=== PATIENT | female | born 1970 | race American Indian/Alaskan Native ===

== ENCOUNTER 2017-05-27 06:05 | Inpatient (IN) ==
[2017-05-22 16:43] LABS: Appearance,Urine CLEAR; Bacteria,Urine 0 /hpf (0); Bilirubin,Urine NEG (NEG); Color,Urine STRAW; Glucose,Urine (UA) NEGATIVE (NEG); Leukocyte Esterase,Urine NEG /uL (NEG); Mucus,Urine FEW /hpf (0); Nitrate,Urine NEG (NEG); Protein,Urine NEG (NEG); Specific Gravity,Urine 1.012 (1.000-1.035); Urine Blood 0.03 mg/dL (<0.03); Urine RBC 2 /hpf (0-1); Urine Squamous Epithelial Cell < 1 /hpf (0-4); Urine WBC 1 /hpf (0-4); Urobilinogen,Urine NEG (NEG)
[2017-05-22 16:50] LABS: Basophils # (Auto) 0 K/mcL (0.0-0.3); Basophils % (Auto) 0.2 % (0.0-2.0); Eosinophils # (Auto) 0.1 K/mcL (0.0-0.7); Eosinophils % (Auto) 1.1 % (0.0-7.0); Granulocytes % (Auto) 90.9 % (38.0-78.0); Lymphocytes # (Auto) 0.6 K/mcL (1.5-4.8); Lymphocytes % (Auto) 7.2 % (15.5-49.0); Mean Cell Volume 86.3 fL (80.0-100.0); Mean Corpuscular HGB Conc 33.1 g/dL (31.0-36.0); Mean Corpuscular Hemoglobin 28.6 pg (26.0-34.0); Monocytes # (Auto) 0.1 K/mcL (0.1-0.9); Monocytes % (Auto) 0.6 % (1.0-12.0); Platelet Count 395 K/mcL (140-440); Red Cell Distribution Width 13.8 % (11.5-14.5)
[2017-05-22 17:01] LABS: Blood Urea Nitrogen 10 mg/dl (6-20)
[~2017-05-27 06:05] MED LIST: ACETAMINOPHEN 500 MG TABLET PO SCH; CELECOXIB 200 MG CAPSULE PO SCH; PREGABALIN 75 MG CAPSULE PO SCH; ceFAZolin 1 GM VIAL IV SCH
[2017-05-27] MEDS ORDERED: KETOROLAC 30 MG, ROPIVACAINE HCL/PF 49.5 ML, EPINEPHrine 0.5 MG, 0.9 % SODIUM CHLORIDE ... IJ ONE (08:00)
[2017-05-27] MEDS ORDERED: oxyCODONE 10 MG TAB.ER.12H PO SCH (08:45)
[2017-05-27] MEDS ORDERED: ROPIVACAINE HCL/PF 30 ML VIAL IJ ONE (09:00)
[2017-05-27] MEDS ORDERED: MIDAZOLAM 5 MG/5 ML VIAL IV ONE (09:00)
[2017-05-27] MEDS ORDERED: LIDOCAINE HCL/PF 100 MG/5 ML SYRINGE IV ONE (09:00)
[2017-05-27] MEDS ORDERED: GLYCOPYRROLATE 0.2 MG/ML VIAL IV ONE (09:00)
[2017-05-27] MEDS ORDERED: PROPOFOL 200 MG/20 ML VIAL IV ONE (09:00)
[2017-05-27] MEDS ORDERED: KETAMINE 100 MG/ML ML IV ONE (09:00)
[2017-05-27] MEDS ORDERED: ONDANSETRON 4 MG/2 ML VIAL IV ONE (09:00)
[2017-05-27] MEDS ORDERED: TRANEXAMIC ACID 1,000 MG/10 ML VIAL IV ONE (09:00)
[2017-05-27] MEDS ORDERED: GENTAMICIN SULFATE 800 MG/20 ML VIAL IR ONE (09:53)
[2017-05-27] MEDS ORDERED: MEPERIDINE 25 MG/ML SYRINGE IV PRN (10:19)
[2017-05-27] MEDS ORDERED: diphenhydrAMINE 50 MG/ML VIAL IV PRN (10:19)
[2017-05-27] MEDS ORDERED: ONDANSETRON 4 MG/2 ML VIAL IV PRN (10:19)
[2017-05-27] MEDS ORDERED: METHOCARBAMOL 1,000 MG/10 ML VIAL IV PRN (10:19)
[2017-05-27] MEDS ORDERED: IPRATROPIUM/ALBUTEROL 3 ML AMPUL.NEB NEB PRN (10:19)
[2017-05-27] MEDS ORDERED: BENZOCAINE/MENTHOL 1 LOZENGE PO PRN ×2 (10:19→10:36)
[2017-05-27] MEDS ORDERED: LACTATED RINGERS 1,000 ML IV SCH (10:30)
[2017-05-27] MEDS ORDERED: BISACODYL 10 MG SUPP.RECT PR PRN (10:36)
[2017-05-27] MEDS ORDERED: TRANEXAMIC ACID 1,000 MG/10 ML VIAL IV SCH (10:36)
[2017-05-27] MEDS ORDERED: FLEETS ADULT ENEMA PR PRN (10:36)
[2017-05-27] MEDS ORDERED: MAGNESIUM HYDROXIDE 30 ML ORAL.SUSP PO PRN (10:36)
[2017-05-27] MEDS ORDERED: POLYETHYLENE GLYCOL 3350 17 GM PACKET PO PRN (10:36)
[2017-05-27] MEDS ORDERED: ACETAMINOPHEN 325 MG TABLET PO PRN (10:36)
--- NOTE | 2017-05-27 10:36 | Brief Operative Note ---
Date of procedure: 05/27/17 Pre-op diagnosis: left knee djd severe Post-op diagnosis: same Procedure: Left TKA with fanny robot Grafts/Implants: Yes Anesthesia: GETA Findings: djd patellar femoral Complications: none Surgeon: Adiel Bunch Inspector Purchased Parts: Simone Garcia Estimated blood loss (cc): 21 Tourniquet Time (Minutes): 50 Specimens Removed/Pathology: none sent Condition: stable Disposition: PACU
[2017-05-27] MEDS ORDERED: ZOLPIDEM 5 MG TABLET PO PRN (10:41)
[2017-05-27] MEDS ORDERED: KETOTIFEN FUMARATE OU PRN (11:00)
--- NOTE | 2017-05-27 11:03 | Operative Note ---
DATE OF OPERATION: 05/27/2017 PREOPERATIVE DIAGNOSIS: Left knee degenerative arthritis, mostly patellofemoral. POSTOPERATIVE DIAGNOSIS: Left knee degenerative arthritis, mostly patellofemoral. PROCEDURE: Left total knee arthroplasty using the JAYNE robot. SURGEON: Adiel Bunch MD DIRECTOR FUNDRAISING: Simone Garcia PA-C ANESTHESIA: General LMA anesthesia. COMPLICATIONS: None. TOTAL TOURNIQUET TIME: 50 minutes. IMPLANTS PLACED: A size 3 tibia, size 3 femur with a 9 mm poly insert, a 36 mm patellar button, cemented components. DESCRIPTION OF PROCEDURE: The patient was brought to the operating room and put to sleep with general LMA anesthesia. Once asleep, the patient had the left leg sterilely prepped and draped in the usual sterile fashion. The leg was exsanguinated and tourniquet inflated to 250 pounds of pressure. Once this was done, we confirmed the operative site, Ioban over the skin and then made a midline incision, a mid vastus approach performed. We exposed the joint showing severe arthritis of the patellofemoral joint and to a lesser extent grade III and IV findings in both medial and lateral compartments. Once this was done, we proceeded with the JAYNE robot total knee, two pins above and below the knee were placed, and the arrays were attached. We registered the hip center of rotation and the medial and lateral malleoli. Once this was done, we then registered 30 points intra-articular on the femur and the tibia and the intra-articular pins on the femur and the tibia. Once all registered, we then balanced the knee at 15 and 90 degrees in both varus and valgus and then adjusted the implant to balance this knee. The patient was in about 90 degrees of hyperextension. At this point, we tightened the patient slightly in extension. Once positioned implants appropriately we brought the robot in. It was registered as well as intra-articular pin and we then made our distal femoral cut. Once this was done, we then made our posterior chamfer cut and then our anterior and posterior chamfer cuts after changing the blade. We irrigated thoroughly. We then made our tibial cut and preserved the posterior cruciate ligament, removed the remnants of the meniscus and removed spurs posteriorly. There was no complication. With this, we then placed the components and set rotation using the robot and the implant was placed. We irrigated thoroughly and then placed the femur. Once this was all done, we trialed a size 9 component, which brought the patient to 1 degree hyperextension. Varus valgus stability was perfect both in flexion and extension and mid flexion. We prepared the patella, total thickness was 22 mm. This was cut to 13 mm and we placed a 36 mm patellar button. The patient tolerated this well. There was no complication. We irrigated and cemented into place the above-mentioned sizes, excess cement being removed. We kept the knee at 45 degrees until all cement was dry. We irrigated the wound once more and injected the capsule around the joint with the post-injection formula. There was no complication and we closed the skin with #1 self-locking stitch. Once this was done, we then closed the skin with 2-0 Vicryl and adhesive closure. The patient tolerated this well. There was no complication. Sterile bandage applied. Tourniquet deflated at 50 minutes. RBH:edward Job ID: [id number] Doc ID: [id number] Adiel Bunch MD
[2017-05-27] MEDS: fentaNYL 100 MCG/2 ML VIAL IV PRN ×2 (11:14→11:29)
--- NOTE | 2017-05-27 11:23 | XRay Report ---
CLINICAL INFORMATION: Postsurgical follow-up TECHNIQUE: AP and crosstable lateral portable left knee COMPARISON: Previous examination dated 02/06/2016 FINDINGS: Status post left total knee arthroplasty. Femoral and tibial complements are in anatomic positions. As mild postsurgical soft tissue and intra-articular gas. There are skin pretty anteriorly IMPRESSION: Status post left total knee arthroplasty Interpreted and Authenticated by: Devin Sr 05/27/17
[2017-05-27] MEDS ORDERED: ACETAMINOPHEN 1,000 MG/100 ML BOTTLE IV ONE (11:44)
[2017-05-27] MEDS: 0.45 % SODIUM CHLORIDE 1,000 ML IV SCH ×2 (12:40→23:17)
[2017-05-27] MEDS: KETOROLAC 15 MG/ML VIAL IV SCH ×2 (12:40→19:20)
[2017-05-27] MEDS: HYDROmorphone 2 MG/ML SYRINGE IV PRN ×3 (13:20→21:07)
[2017-05-27] MEDS: 0.9 % SODIUM CHLORIDE 10 ML SYRINGE IV SCH ×2 (14:50→22:00)
[2017-05-27] MEDS: HYDROcodone/APAP 10/325MG TABLET PO PRN (16:48)
[2017-05-27] MEDS: WARFARIN 5 MG TABLET PO SCH (16:58)
[2017-05-27] MEDS: ONDANSETRON 4 MG/2 ML VIAL IV PRN (16:58)
[2017-05-27] MEDS: ceFAZolin 1 GM VIAL IV SCH (16:58)
--- NOTE | 2017-05-27 18:51 | General Surgery Progress Note ---
Subjective Patient reports: still having pain Narrative: Note initiated : 05/27/17 at 6:49 pm Service Date, if different from initiated Date: [] Patient: Tamara Sood 46 y/o F admitted on 05/27/17 for Left Total Knee Arthroplasty with Celestino Robot. Chief Complaint: [increased pain following L CELESTINO TKA today. Spinal and adductor canal block wearing off, pain 9/10 per pt now.] Objective Temp Pulse Resp BP Pulse Ox 98.7 F 75 21 135/72 94 05/27/17 15:15 05/27/17 17:09 05/27/17 11:30 05/27/17 17:09 05/27/17 17:09 - Additional Data Intake & Output - Last 24 hours: Intake & Output 05/25/17 05/26/17 05/27/17 05/28/17 05:59 05:59 05:59 05:59 Intake Total 1700 / 1700 Output Total 1755 / 1755 Balance -55 / -55 Weight 146 lb - General physical appearance moderate pain - Eyes PERRL - Respiratory normal expansion, normal respiratory effort - Neurologic other (lifts leg and moves ankle wo difficulty) - Psychiatric other (tearful and verbose regarding extent of pain) - Labs 05/22/17 14:40 05/22/17 14:39 Assessment and Plan (1) Postoperative pain of left knee Problem details: POD #0. Pt is chronically ill and has chronic pain with developed intolerance of pain. Now intolerant of post surgical pain. Status: Acute Assessment and plan: Pt received an adductor canal catheter in anticipation of poor tolerance of post operative pain. This is redosed this evening with 20 ml of marcaine 0.5% MPF. pt josiah well and is experiencing relief. plan for med/surgical coordinatorstaff weapons officer overnight to redose q 4 hours prn, may dose after midnight tonight to avoid toxicity. Current Visit: Yes - Narrative A/P Narrative: pt understands and agrees with plan and is appreciative of intervention. jonna detailed discussion with pt regarding chronic illness and pain and its effects on the HIGH LEAD YARDER/PNS making it increasingly difficult to control acute and chronic pain in these individuals. Pt expresses understanding and resolve to deal with the pain as best she can. Will plan to see and follow her tomorrow. Catheter will need to be d/c'd 05/28 due to concerns regarding infection risk and anticoagulation. - Time Spent With Patient Total time spent is greater than 50% in coordination of care (as documented) at patient's floor/unit and/or counseling patient: 15 - 24 minutes
[2017-05-27] MEDS ORDERED: ASPIRIN 325 MG ENTERIC COATED TABLET PO SCH (21:00)
[2017-05-27] MEDS ORDERED: TEMAZEPAM 15 MG CAPSULE PO PRN (21:00)
[2017-05-27] MEDS ORDERED: ENOXAPARIN 80 MG/0.8 ML SYRINGE SQ SCH (21:00)
[2017-05-27] MEDS: SENNOSIDES 1 TABLET PO SCH (21:01)
[2017-05-27] MEDS: CETIRIZINE 10 MG TABLET PO SCH (21:02)
[2017-05-27] MEDS: oxyCODONE 10 MG TAB.ER.12H PO SCH (21:02)
[2017-05-27] MEDS: NITROFURANTOIN SR 100 MG CAPSULE PO SCH (21:02)
[2017-05-27] MEDS: DOCUSATE SODIUM 100 MG CAPSULE PO SCH (21:03)
[2017-05-28] MEDS: KETOROLAC 15 MG/ML VIAL IV SCH ×5 (00:33→23:07)
[2017-05-28] MEDS: HYDROcodone/APAP 10/325MG TABLET PO PRN ×5 (00:34→20:44)
[2017-05-28] MEDS: ceFAZolin 1 GM VIAL IV SCH (00:35)
[2017-05-28] MEDS: HYDROmorphone 2 MG/ML SYRINGE IV PRN ×7 (00:51→15:37)
[2017-05-28] MEDS: BUPIVACAINE 0.5% 50 ML VIAL IJ PRN ×2 (01:09→07:00)
[2017-05-28] MEDS ORDERED: BUPIVACAINE 0.5% 50 ML VIAL IJ PRN (07:00)
[2017-05-28] MEDS: ONDANSETRON 4 MG/2 ML VIAL IV PRN (07:00)
--- NOTE | 2017-05-28 07:31 | Orthopedic Progress Note ---
Subjective Patient information: Note initiated : 05/28/17 at 7:30 am Service Date, if different from initiated Date: [] Patient: Tamara Sood 46 y/o F admitted on 05/27/17 for Left Total Knee Arthroplasty with Celestino Robot. Chief Complaint: [Pt is stable this morning on post operative day 1 without any significant concerns or complaints. Patients vital signs have remained stable. Patients dressing is dry and exhibits a grossly intact neurovascular and neuromotor exam. Patients 10 point ROS is otherwise negative. Pain is the primary chief complaint despite still having adductor canal block still intact. We are maxing out orals and injectables. ] Objective Vital signs: Vital Signs Temp Pulse Pulse Resp BP BP Pulse Ox 05/28/17 07:12 98.3 F 20 114/67 97 05/28/17 04:00 98.4 F 74 14 113/75 100 05/27/17 23:22 98.1 F 67 12 110/70 100 05/27/17 20:00 98.0 F 55 L 12 122/49 99 05/27/17 18:00 96 05/27/17 17:09 75 135/72 94 05/27/17 17:00 51 L 120/70 92 05/27/17 16:00 71 133/70 93 05/27/17 15:15 98.7 F 88 130/66 97 05/27/17 14:37 98 05/27/17 11:30 98.2 F 59 L 21 132/75 100 05/27/17 11:21 51 L 14 126/73 99 05/27/17 11:16 54 L 14 116/59 99 05/27/17 11:11 66 14 113/59 99 05/27/17 11:06 53 L 11 L 111/57 99 05/27/17 10:56 60 16 106/61 99 05/27/17 10:51 98.1 F 61 16 105/49 99 Intake and Output 05/27/17 05/28/17 05/28/17 21:59 05:59 13:59 Intake Total 240 / 240 1500 / 1500 Output Total 1450 / 1450 300 / 300 Balance -1210 / -1210 1200 / 1200 Intake: IV 1000 / 1000 Sodium Chloride 0.45% 1, 1000 / 1000 000 ml @ 100 mls/hr IV . Q10H [facility] Rx#:[id number] Oral 240 / 240 500 / 500 Output: Void Amount 1450 / 1450 300 / 300 Straight 1050 / 1050 Other: Meal Dinner Percent of Meal Consumed 100% Feeding Ability Independent Weight 150 lb Intake & Output: Intake & Output 05/27/17 05/28/17 05/28/17 21:59 05:59 13:59 Intake Total 240 / 240 1500 / 1500 Output Total 1450 / 1450 300 / 300 Balance -1210 / -1210 1200 / 1200 Weight 150 lb Intake: IV 1000 / 1000 Sodium Chloride 0.45% 1, 1000 / 1000 000 ml @ 100 mls/hr IV . Q10H [facility] Rx#:[id number] Oral 240 / 240 500 / 500 Output: Void Amount 1450 / 1450 300 / 300 Straight 1050 / 1050 Other: Meal Dinner Percent of Meal Consumed 100% Feeding Ability Independent Incision: Yes healing Incision clean and dry: Yes Dressing: Yes clean, Yes dry Weight bearing status: full Neurological exam IM: Yes motor sensory intact, Yes neurovascular intact Extremities exam IM: Yes Foot pink and warm, Yes neurovascular intact - Labs CBC & BMP: 05/28/17 05:20 05/22/17 14:39 Labs: Orthopedic Labs 05/28/17 05/27/17 05/22/17 05:20 06:15 14:39 PT 13.4 12.3 26.8 H INR 1.0 0.9 2.4 H APTT 43 H 05/28/17 05/22/17 05:20 14:40 Hgb 14.3 Hct 32.7 L 43.1 Assessment and Plan (1) Hx of total knee arthroplasty Patient has been educated regarding wound care and dressings, follow up recommendations, and medication use. We will f/u with the patient within 2-3 weeks for wound check. Status: Acute
--- NOTE | 2017-05-28 07:35 | Discharge Summary ---
Ortho Discharge - TKA - Patient Instructions Diet: Regular Diet Activity: activity as tolerated, weight bearing as tolerated Total Knee Protocol: For Total Knee: Start ROM MARTHA with stationary bike or rocking chair. Work on gaining full extension of knee. Posterior dislocation precautions provided. Hip abductor strengthening and gait training instructions provided. Apply Cryocuff as instructed. Dressing Care: May shower in 2 days, Aquacel Ag - leave on for 5 days Patient Education: Total Knee Replacement (DC) Additional Instructions: Discharge Instructions: Do the exercises at home that physical therapy gave you. [facility] [phone] APPOINTMENT: May 30 @ 8:15am. Please check in at 8:15 for paperwork. Take your photo ID, insurance cards, and current medication list with you to your first physical therapy appointment. Your orders have been faxed to them. Take your prescription to [facility] any medication. [facility]- [phone]. Please bring your insurance cards and photo ID to [facility] the [facility]. The orders have been faxed to them. Wear comfortable clothing for your physical therapy. Weight bearing as tolerated. CPM for home use If you have the Aquacel Ag dressing, leave in place for 7 days then remove. If dressing becomes soiled (turns black), remove and use gauze 4x4 dressing and silvasorb ointment and change daily. Keep incision clean and dry. If you have Dermabond (a dressing with a mesh-like appearance), leave open to air. You may start showering on post op day #2. The Dermabond dressing can get wet, do not scrub dressing. Pat dry. To avoid constipation while taking any narcotic pain medication, take an over the counter stool softener/laxative. Use your Cryocuff or ice packs as directed, on for 20 minutes at a time throughout the day. This and elevation will help with pain and swelling. Call your physician for fevers above 100.5 or pain not controlled by medication. Your prescriptions are with your discharge information. Some medications were electronically transmitted to your pharmacy of choice. - Problem Maintenance (1) Hx of total knee arthroplasty Status: Acute - Follow Up Plan Follow Up Appointments: Adiel Bunch MD [Physician] - 06/11/17 9:20 am Disposition: Home, Self-Care Prognosis: Good Rehab Potential: Good I certify that the patient requires SNF services: No Overall status at discharge: patient is progressing back to baseline - Orders For Discharge Prescriptions: Docusate Sodium [Colace] 100 mg PO BID #60 capsule HYDROcodone/APAP 10/325MG [[place] 10/325Mg] 1 - 2 tab PO Q4HP PRN #75 tablet PRN Reason: Pain oxyCODONE [Oxycontin] 20 mg PO BID #40
[2017-05-28] MEDS: 0.9 % SODIUM CHLORIDE 10 ML SYRINGE IV SCH ×3 (08:08→23:40)
[2017-05-28] MEDS: 0.45 % SODIUM CHLORIDE 1,000 ML IV SCH ×4 (08:09→18:49)
[2017-05-28] MEDS: RALOXIFENE HCL 60 MG TABLET PO SCH (08:10)
[2017-05-28] MEDS: POTASSIUM CHLORIDE 10 MEQ TABLET PO SCH (08:10)
[2017-05-28] MEDS: FLUTICASONE PROPIONATE SPRAY.NAS NS SCH (08:11)
[2017-05-28] MEDS: FUROSEMIDE 40 MG TABLET PO SCH (08:11)
[2017-05-28] MEDS: HYDROXYCHLOROQUINE 200 MG TABLET PO SCH (08:11)
[2017-05-28] MEDS: NITROFURANTOIN SR 100 MG CAPSULE PO SCH ×2 (08:11→20:34)
[2017-05-28] MEDS: buPROPion 150 MG TAB.SR.12H PO SCH (08:11)
[2017-05-28] MEDS: DOCUSATE SODIUM 100 MG CAPSULE PO SCH ×2 (09:54→20:34)
[2017-05-28] MEDS: LISINOPRIL 5 MG TABLET PO SCH (09:54)
[2017-05-28] MEDS: OMEPRAZOLE 20 MG CAPSULE PO SCH (09:54)
[2017-05-28] MEDS: oxyCODONE 10 MG TAB.ER.12H PO SCH ×2 (09:54→20:33)
[2017-05-28] MEDS ORDERED: PROMETHAZINE 25 MG TABLET PO PRN (12:21)
[2017-05-28] MEDS: WARFARIN 5 MG TABLET PO SCH (12:50)
[2017-05-28] MEDS: ENOXAPARIN 40 MG/0.4 ML SYRINGE SQ SCH (12:51)
--- NOTE | 2017-05-28 19:25 | General Surgery Progress Note ---
Subjective Patient reports: feels better Narrative: Note initiated : 05/28/17 at 7:22 pm Service Date, if different from initiated Date: [] Patient: Tamara Sood 46 y/o F admitted on 05/27/17 for Left Total Knee Arthroplasty with Celestino Robot. Chief Complaint: [POD 1 Peripheral nerve catheter follow up and bolus] Objective Temp Pulse Resp BP Pulse Ox 97.9 F 74 20 167/93 100 05/28/17 15:52 05/28/17 04:00 05/28/17 15:52 05/28/17 15:52 05/28/17 15:52 - Additional Data Intake & Output - Last 24 hours: Intake & Output 05/26/17 05/27/17 05/28/17 05/29/17 05:59 05:59 05:59 05:59 Intake Total 3440 / 3440 2006 Output Total 2455 / 2455 700 / 700 Balance 985 / 985 1307 / 1307 Weight 150 lb - General physical appearance no distress, other (eating without problem) - Neurologic normal sensation, other (moves all directions LLE) - Labs 05/28/17 05:20 05/22/17 14:39 Assessment and Plan (1) Postoperative pain of left knee Problem details: POD #0. Pt is chronically ill and has chronic pain with developed intolerance of pain. Now intolerant of post surgical pain. Status: Acute Assessment and plan: Pt received an adductor canal catheter in anticipation of poor tolerance of post operative pain. This is redosed this evening with 20 ml of marcaine 0.5% MPF. pt josiah well and is experiencing relief. plan for med/medical surgery nursestaff assistant overnight to redose q 4 hours prn, may dose after midnight tonight to avoid toxicity. 05/28 doing much better, ambulating, cpm and tolerating. overnight general warehouse worker not allowing rn bolus of peripheral nerve catheter. pt desires that catheter stay in until discharge from hospital. i will write orders to bolus q 4 hrs overnight after midnight prn. extensive detailed discussion with dr cooney who wants the catheter to stay in place until discharge, no concern for infection risk. I have bolused the catheter with 20 ml ropi 0.5% tonight. pt appreciative and agrees with plan. Current Visit: Yes - Narrative A/P Narrative: pt doing better emotionally and pain is managed, she has a plan for aggressive pt regimen tomorrow and wants the catheter to be available for that. this is a reasonable request. - Time Spent With Patient Total time spent is greater than 50% in coordination of care (as documented) at patient's floor/unit and/or counseling patient: 15 - 24 minutes
[2017-05-28] MEDS: SENNOSIDES 1 TABLET PO SCH (20:33)
[2017-05-28] MEDS: CETIRIZINE 10 MG TABLET PO SCH (20:34)
[2017-05-29] MEDS ORDERED: ROPIVACAINE HCL/PF 20 ML VIAL IJ ONE ×2 (00:01→04:00)
[2017-05-29] MEDS: ROPIVACAINE HCL/PF 20 ML VIAL IJ PRN ×3 (00:18→21:03)
[2017-05-29] MEDS: HYDROcodone/APAP 10/325MG TABLET PO PRN ×6 (00:39→23:10)
[2017-05-29] MEDS: 0.45 % SODIUM CHLORIDE 1,000 ML IV SCH ×3 (05:10→22:55)
[2017-05-29] MEDS: KETOROLAC 15 MG/ML VIAL IV SCH (05:39)
[2017-05-29] MEDS: 0.9 % SODIUM CHLORIDE 10 ML SYRINGE IV SCH ×3 (06:20→22:55)
--- NOTE | 2017-05-29 07:09 | Orthopedic Progress Note ---
Subjective Patient information: Note initiated : 05/29/17 at 7:08 am Service Date, if different from initiated Date: [] Patient: Tamara Sood 46 y/o F admitted on 05/27/17 for Left Total Knee Arthroplasty with Celestino Robot. Chief Complaint: [doing better and still has lpain cath in and plans on staying and no nausea] Objective Vital signs: Vital Signs Temp Pulse Resp BP Pulse Ox 05/29/17 07:05 97.7 F 20 101/65 96 05/29/17 04:00 98.4 F 70 14 114/75 98 05/29/17 03:00 98 05/28/17 22:57 99 05/28/17 22:56 98.2 F 81 14 120/67 99 05/28/17 19:36 98.2 F 70 14 111/55 95 05/28/17 19:00 95 05/28/17 15:52 97.9 F 20 167/93 100 05/28/17 11:29 97.9 F 18 102/60 96 05/28/17 08:00 97 05/28/17 07:44 97 05/28/17 07:12 98.3 F 20 114/67 97 Intake and Output 05/28/17 05/29/17 05/29/17 21:59 05:59 13:59 Intake Total 1405 / 1405 100 / 100 Output Total 1550 / 1550 1000 / 1000 Balance -145 / -145 -900 / -900 Intake: IV 1000 / 1000 Sodium Chloride 0.45% 1, 1000 / 1000 000 ml @ 100 mls/hr IV . Q10H [facility] Rx#:[id number] Oral 405 / 405 100 / 100 Output: Void Amount 1550 / 1550 1000 / 1000 Other: Meal Dinner Percent of Meal Consumed 100% Feeding Ability Independent # Voids 1 Weight 151 lb Intake & Output: Intake & Output 05/28/17 05/29/17 05/29/17 21:59 05:59 13:59 Intake Total 1405 / 1405 100 / 100 Output Total 1550 / 1550 1000 / 1000 Balance -145 / -145 -900 / -900 Weight 151 lb Intake: IV 1000 / 1000 Sodium Chloride 0.45% 1, 1000 / 1000 000 ml @ 100 mls/hr IV . Q10H [facility] Rx#:[id number] Oral 405 / 405 100 / 100 Output: Void Amount 1550 / 1550 1000 / 1000 Other: Meal Dinner Percent of Meal Consumed 100% Feeding Ability Independent # Voids 1 Incision: Yes healing Incision clean and dry: Yes Dressing: Yes clean Weight bearing status: full Neurological exam IM: Yes oriented X3, Yes neurovascular intact Extremities exam IM: Yes Foot pink and warm, Yes neurovascular intact - Labs CBC & BMP: 05/28/17 05:20 05/22/17 14:39 Labs: Orthopedic Labs 05/29/17 05/28/17 05/27/17 05:50 05:20 06:15 PT Pending 13.4 12.3 INR Pending 1.0 0.9 APTT 05/22/17 14:39 PT 26.8 H INR 2.4 H APTT 43 H 05/28/17 05/22/17 05:20 14:40 Hgb 14.3 Hct 32.7 L 43.1
[2017-05-29] MEDS: HYDROmorphone 2 MG/ML SYRINGE IV PRN ×5 (08:13→20:04)
[2017-05-29] MEDS: NITROFURANTOIN SR 100 MG CAPSULE PO SCH ×3 (10:43→21:04)
[2017-05-29] MEDS: POTASSIUM CHLORIDE 10 MEQ TABLET PO SCH ×2 (10:43→10:49)
[2017-05-29] MEDS: buPROPion 150 MG TAB.SR.12H PO SCH ×2 (10:43→10:52)
[2017-05-29] MEDS: LISINOPRIL 5 MG TABLET PO SCH (10:44)
[2017-05-29] MEDS: HYDROXYCHLOROQUINE 200 MG TABLET PO SCH ×2 (10:44→10:51)
[2017-05-29] MEDS: DOCUSATE SODIUM 100 MG CAPSULE PO SCH ×2 (10:44→21:04)
[2017-05-29] MEDS: FUROSEMIDE 40 MG TABLET PO SCH ×2 (10:44→10:50)
[2017-05-29] MEDS: RALOXIFENE HCL 60 MG TABLET PO SCH ×2 (10:45→10:50)
[2017-05-29] MEDS: ENOXAPARIN 40 MG/0.4 ML SYRINGE SQ SCH (10:45)
[2017-05-29] MEDS: OMEPRAZOLE 20 MG CAPSULE PO SCH (10:45)
[2017-05-29] MEDS: FLUTICASONE PROPIONATE SPRAY.NAS NS SCH (10:45)
[2017-05-29] MEDS: WARFARIN 5 MG TABLET PO SCH (15:25)
[2017-05-29] MEDS: SENNOSIDES 1 TABLET PO SCH (21:04)
[2017-05-29] MEDS: CETIRIZINE 10 MG TABLET PO SCH (21:04)
[2017-05-30] MEDS: HYDROcodone/APAP 10/325MG TABLET PO PRN ×3 (03:15→11:40)
[2017-05-30] MEDS: ROPIVACAINE HCL/PF 20 ML VIAL IJ PRN (03:19)
[2017-05-30] MEDS: POTASSIUM CHLORIDE 10 MEQ TABLET PO SCH (07:43)
[2017-05-30] MEDS: OMEPRAZOLE 20 MG CAPSULE PO SCH (07:44)
[2017-05-30] MEDS: DOCUSATE SODIUM 100 MG CAPSULE PO SCH (08:30)
[2017-05-30] MEDS: buPROPion 150 MG TAB.SR.12H PO SCH (08:30)
[2017-05-30] MEDS: LISINOPRIL 5 MG TABLET PO SCH (08:30)
[2017-05-30] MEDS: NITROFURANTOIN SR 100 MG CAPSULE PO SCH (08:33)
[2017-05-30] MEDS: FLUTICASONE PROPIONATE SPRAY.NAS NS SCH (08:33)
[2017-05-30] MEDS: RALOXIFENE HCL 60 MG TABLET PO SCH (08:33)
[2017-05-30] MEDS: FUROSEMIDE 40 MG TABLET PO SCH (08:33)
[2017-05-30] MEDS: HYDROXYCHLOROQUINE 200 MG TABLET PO SCH (08:33)
[2017-05-30] MEDS: 0.9 % SODIUM CHLORIDE 10 ML SYRINGE IV SCH (08:35)
[2017-06-02] MEDS ORDERED: ERGOCALCIFEROL (VITAMIN D2) 50,000 UNIT CAPSULE PO SCH (09:00)
== END 2017-05-30 14:40 | disposition home or self-care (01) | DRG 470 ==
LOC: MEDSUR 06:05
PROVIDERS: ADMIT Orthopaedic Surgery; ATTEND Orthopaedic Surgery

== ENCOUNTER 2018-12-01 07:06 | Inpatient (IN) ==
[2018-11-26 12:34] LABS: Appearance,Urine CLEAR; Bilirubin,Urine NEG (NEG); Color,Urine YELLOW; Glucose,Urine (UA) NEGATIVE (NEG); Leukocyte Esterase,Urine NEG /uL (NEG); Protein,Urine NEG (NEG); Specific Gravity,Urine 1.021 (1.000-1.035); Urine Blood NEG mg/dL (<0.03); Urobilinogen,Urine NEG (NEG)
[2018-11-26 13:58] LABS: Basophils # (Auto) 0.1 K/mcL (0.0-0.3); Basophils % (Auto) 0.6 % (0.0-2.0); Eosinophils # (Auto) 0.1 K/mcL (0.0-0.7); Eosinophils % (Auto) 1.1 % (0.0-7.0); Granulocytes % (Auto) 76.1 % (38.0-78.0); Lymphocytes # (Auto) 1.4 K/mcL (1.5-4.8); Lymphocytes % (Auto) 15.1 % (15.5-49.0); Mean Cell Volume 84.8 fL (80.0-100.0); Mean Corpuscular HGB Conc 32.6 g/dL (31.0-36.0); Monocytes # (Auto) 0.7 K/mcL (0.1-0.9); Monocytes % (Auto) 7.1 % (1.0-12.0); Platelet Count 446 K/mcL (140-440); Red Cell Distribution Width 12.9 % (11.5-14.5)
[2018-11-26 14:21] LABS: Blood Urea Nitrogen 10 mg/dl (6-20)
[~2018-12-01 07:06] MED LIST changes: +oxyCODONE 10 MG TAB.ER.12H PO SCH
[2018-12-01] MEDS ORDERED: KETAMINE 100 MG/ML ML IV ONE (09:35)
[2018-12-01] MEDS ORDERED: ROPIVACAINE HCL/PF 20 ML VIAL IJ ONE (09:35)
[2018-12-01] MEDS ORDERED: TRANEXAMIC ACID 1,000 MG/10 ML VIAL IV ONE ×2 (09:35→10:34)
[2018-12-01] MEDS ORDERED: PHENYLEPHRINE 10 MG/ML VIAL IV ONE (09:35)
[2018-12-01] MEDS ORDERED: DEXAMETHASONE 10 MG/ML VIAL IV ONE (09:35)
[2018-12-01] MEDS ORDERED: ONDANSETRON 4 MG/2 ML VIAL IV ONE (09:35)
[2018-12-01] MEDS ORDERED: MIDAZOLAM 5 MG/5 ML VIAL IV ONE (09:35)
[2018-12-01] MEDS ORDERED: PROPOFOL 200 MG/20 ML VIAL IV ONE (09:35)
[2018-12-01] MEDS ORDERED: LIDOCAINE HCL/PF 100 MG/5 ML SYRINGE IV ONE (09:35)
[2018-12-01] MEDS ORDERED: IPRATROPIUM/ALBUTEROL 3 ML AMPUL.NEB NEB PRN (10:00)
[2018-12-01] MEDS ORDERED: ONDANSETRON 4 MG/2 ML VIAL IV PRN ×2 (10:00→10:34)
[2018-12-01] MEDS ORDERED: MEPERIDINE 25 MG/ML SYRINGE IV PRN (10:00)
[2018-12-01] MEDS ORDERED: MEPERIDINE 50 MG/ML INJECTION IM PRN (10:00)
[2018-12-01] MEDS ORDERED: NALOXONE HCL 0.4 MG/ML VIAL IV PRN (10:00)
[2018-12-01] MEDS ORDERED: LACTATED RINGERS 1,000 ML IV SCH (10:00)
[2018-12-01] MEDS ORDERED: FLUMAZENIL 0.1 MG/ML ML IV PRN (10:00)
[2018-12-01] MEDS ORDERED: BENZOCAINE/MENTHOL 1 LOZENGE PO PRN ×2 (10:00→10:34)
[2018-12-01] MEDS ORDERED: PROMETHAZINE 25 MG/ML VIAL IM PRN (10:00)
[2018-12-01] MEDS ORDERED: ACETAMINOPHEN 1,000 MG/100 ML BOTTLE IV ONE (10:00)
[2018-12-01] MEDS ORDERED: METHOCARBAMOL 1,000 MG/10 ML VIAL IV PRN (10:00)
[2018-12-01] MEDS ORDERED: fentaNYL 100 MCG/2 ML VIAL IV PRN (10:00)
[2018-12-01] MEDS ORDERED: LACTATED RINGERS 250 ML IV PRN (10:00)
[2018-12-01] MEDS ORDERED: 0.9 % SODIUM CHLORIDE 9 ML, KETOROLAC 30 MG, ROPIVACAINE HCL/PF 49.5 ML, EPINEPHrine 0.... IJ SCH (10:14)
[2018-12-01] MEDS ORDERED: BISACODYL 10 MG SUPP.RECT PR PRN (10:34)
[2018-12-01] MEDS ORDERED: TEMAZEPAM 15 MG CAPSULE PO PRN (10:34)
[2018-12-01] MEDS ORDERED: MAGNESIUM HYDROXIDE 30 ML ORAL.SUSP PO PRN (10:34)
[2018-12-01] MEDS ORDERED: ACETAMINOPHEN 325 MG TABLET PO PRN (10:34)
[2018-12-01] MEDS ORDERED: POLYETHYLENE GLYCOL 3350 17 GM PACKET PO PRN (10:34)
[2018-12-01] MEDS ORDERED: FLEETS ADULT ENEMA PR PRN (10:34)
--- NOTE | 2018-12-01 10:34 | Brief Operative Note ---
Date of procedure: 12/01/18 Pre-op diagnosis: left knee torn pcl Post-op diagnosis: same Procedure: left tka one component exchange liner Grafts/Implants: Yes Anesthesia: GETA Complications: none Surgeon: Adiel Bunch Grape Picker: Simone Garcia Estimated blood loss (cc): 10 Tourniquet Time (Minutes): 17 Specimens Removed/Pathology: none sent Condition: stable Disposition: PACU
[2018-12-01] MEDS ORDERED: FLUTICASONE PROPIONATE SPRAY.NAS NS PRN (10:37)
[2018-12-01] MEDS ORDERED: CETIRIZINE 10 MG TABLET PO PRN (10:37)
[2018-12-01] MEDS ORDERED: WARFARIN 6 MG TABLET PO SCH (10:45)
[2018-12-01] MEDS ORDERED: GENTAMICIN SULFATE 800 MG/20 ML VIAL IR ONE (10:54)
--- NOTE | 2018-12-01 11:50 | Operative Note ---
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 PROCEDURE: Left knee poly liner exchange. She went from a size 9 to a size 13 deep dish poly. This gave her stability throughout. She had full range of motion. SURGEON: Adiel Bunch M.D. HAT DESIGNER: Simone Garcia PA-C. ANESTHESIA: General LMA anesthesia. COMPLICATIONS: None. TOTAL TOURNIQUET TIME: 17 minutes. DESCRIPTION OF PROCEDURE: The patient was brought to the operating room and put to sleep with general LMA anesthesia. Once asleep, a time-out was performed confirming the operative site by initials, consent form and x-rays. We made a midline incision, a midvastus approach performed with 250 pounds of pressure on the tourniquet. We made a midvastus approach and incision through her prior scar. We exposed the joint, popped out her old poly, noting she had posterior sag and she had instability side to side. Once this was assessed, we popped out the poly. The poly had no significant wear. We irrigated thoroughly and then increased the size to a size 11 and then to a size 13. The 13 was the most appropriate, giving us stability with 1 mm of play in all planes throughout the arc of motion. She tolerated this well. There were no complications. We irrigated the joint and closed the midvastus approach with #1 Stratafix. We closed the skin with 2-0 Vicryl and adhesive closure. The patient tolerated this well without complication. RBH:luis Job ID: [id number] Doc ID: [id number] Adiel Bunch MD
--- NOTE | 2018-12-01 11:52 | XRay Report ---
CLINICAL INFORMATION: Post-Op Total Knee COMPARISON: None. FINDINGS: Total knee prostheses is anatomically aligned. No osseous abnormality. Periarticular soft tissue swelling seen - as expected IMPRESSION: Negative Interpreted and Authenticated by: Devin Jimenez 12/01/18
[2018-12-01] MEDS: 0.45 % SODIUM CHLORIDE 1,000 ML IV SCH (14:47)
[2018-12-01] MEDS: ceFAZolin 1 GM VIAL IV SCH ×2 (14:48→21:51)
[2018-12-01] MEDS: KETOROLAC 15 MG/ML VIAL IV SCH ×3 (14:48→23:54)
[2018-12-01] MEDS: 0.9 % SODIUM CHLORIDE 10 ML SYRINGE IV SCH ×2 (15:02→21:52)
[2018-12-01] MEDS: HYDROcodone/APAP 5/325MG TABLET PO PRN (16:24)
[2018-12-01] MEDS: HYDROmorphone 2 MG/ML VIAL IV PRN (17:06)
[2018-12-01] MEDS: oxyCODONE/APAP 5/325MG TABLET PO PRN (19:36)
[2018-12-01] MEDS: DOCUSATE SODIUM 100 MG CAPSULE PO SCH (20:37)
[2018-12-01] MEDS: LISINOPRIL 5 MG TABLET PO SCH (20:37)
[2018-12-01] MEDS: buPROPion 150 MG TAB.SR.12H PO SCH (20:37)
[2018-12-01] MEDS ORDERED: SENNOSIDES 1 TABLET PO SCH (21:00)
[2018-12-01] MEDS ORDERED: ASPIRIN 325 MG ENTERIC COATED TABLET PO SCH (21:00)
[2018-12-02] MEDS: HYDROmorphone 2 MG/ML VIAL IV PRN (00:09)
[2018-12-02] MEDS: oxyCODONE/APAP 5/325MG TABLET PO PRN ×3 (00:09→13:10)
[2018-12-02] MEDS: 0.45 % SODIUM CHLORIDE 1,000 ML IV SCH (00:56)
[2018-12-02] MEDS: KETOROLAC 15 MG/ML VIAL IV SCH ×2 (06:27→13:13)
[2018-12-02] MEDS: 0.9 % SODIUM CHLORIDE 10 ML SYRINGE IV SCH ×2 (06:27→06:28)
[2018-12-02] MEDS: HYDROcodone/APAP 5/325MG TABLET PO PRN (06:53)
[2018-12-02] MEDS ORDERED: OMEPRAZOLE 20 MG CAPSULE PO SCH (07:30)
--- NOTE | 2018-12-02 07:39 | Orthopedic Progress Note ---
Subjective Patient information: Note initiated : 12/02/18 at 7:38 am Service Date, if different from initiated Date: [] Patient: Tamara Sood 48 y/o F admitted on 12/01/18 for Left Knee Polyliner Exchange. Chief Complaint: [Pt is stable this morning on post operative day 1 without any significant concerns or complaints. Patients vital signs have remained stable. Patients dressing is dry and is grossly intact from a neurovascular and motor standpoint. Patients 10 point ROS is otherwise negative. ] Objective Vital signs: Vital Signs Temp Pulse Resp BP BP Pulse Ox 12/02/18 02:28 97.9 F 61 12 111/69 96 12/01/18 23:58 92 12/01/18 23:56 98.5 F 80 14 157/93 92 12/01/18 19:34 98.8 F 72 12 137/83 96 12/01/18 18:00 97 12/01/18 15:14 97.6 F 14 118/70 98 12/01/18 14:39 113/72 98 12/01/18 14:34 97 12/01/18 14:09 91/56 95 12/01/18 13:39 92/57 96 12/01/18 13:24 100/69 98 12/01/18 13:09 89/57 97 12/01/18 12:54 100/62 98 12/01/18 12:39 103/66 97 12/01/18 11:35 97.6 F 58 L 12 130/74 98 12/01/18 11:20 97.5 F 61 9 L 122/68 99 12/01/18 11:05 97.1 F 62 9 L 109/60 100 12/01/18 11:00 63 9 L 106/62 100 12/01/18 10:55 61 10 L 95/54 100 12/01/18 10:50 97.1 F 65 10 L 109/58 100 12/01/18 07:57 97.4 F 80 18 130/80 98 Intake and Output 12/01/18 12/02/18 12/02/18 21:59 05:59 13:59 Intake Total 600 1240 Output Total 1600 350 Balance -1000 890 Intake: IV 1000 Sodium Chloride 0.45% 1,000 ml 1000 @ 100 mls/hr IV .Q10H [facility] Rx#: [id number] Oral 600 240 Output: Void Amount 1600 350 Other: Meal Dinner Percent of Meal Consumed 75% Feeding Ability Independent Weight 155 lb Intake & Output: Intake & Output 12/01/18 12/02/18 12/02/18 21:59 05:59 13:59 Intake Total 600 1240 Output Total 1600 350 Balance -1000 890 Weight 155 lb Intake: IV 1000 Sodium Chloride 0.45% 1,000 ml 1000 @ 100 mls/hr IV .Q10H [facility] Rx#: [id number] Oral 600 240 Output: Void Amount 1600 350 Other: Meal Dinner Percent of Meal Consumed 75% Feeding Ability Independent Incision: Yes healing Incision clean and dry: Yes Dressing: Yes clean Neurological exam IM: Yes motor sensory intact, Yes neurovascular intact Extremities exam IM: Yes Foot pink and warm, Yes neurovascular intact - Labs CBC & BMP: 12/02/18 04:25 11/26/18 10:52 Labs: Orthopedic Labs 11/26/18 10:52 PT 19.1 H INR 1.6 H 12/02/18 11/26/18 04:25 10:52 Hgb 12.7 Hct 31.6 L 39.0 Assessment and Plan (1) History of revision of total knee arthroplasty The patient has been educated regarding dressing care, Physical Therapy recommendations, home exercises, restrictions, and follow up appointments. The patient has had all necessary DME prescribed. The patient has remained relatively stable during their hospital course. Leave Dermabond patch intact until followup Status: Acute
--- NOTE | 2018-12-02 07:42 | Discharge Summary ---
Ortho Discharge - TKA - Patient Instructions Diet: Regular Diet Activity: activity as tolerated, weight bearing as tolerated Total Knee Protocol: For Total Knee: Start ROM MARTHA with stationary bike or rocking chair. Work on gaining full extension of knee. Posterior dislocation precautions provided. Hip abductor strengthening and gait training instructions provided. Apply Cryocuff as instructed. Dressing Care: May shower in 2 days - Problem Maintenance (1) History of revision of total knee arthroplasty Status: Acute - Follow Up Plan Follow Up Appointments: Simone Garcia PA-C [Physician Architect Intern] - 12/16/18 10:00 am Disposition: Home, Self-Care Prognosis: Good Rehab Potential: Good I certify that the patient requires SNF services: No Overall status at discharge: patient is progressing back to baseline - Orders For Discharge Prescriptions: Docusate Sodium [Colace] 100 mg PO BID #60 cap oxyCODONE/APAP [Percocet 5-325 mg] 1 - 2 tab PO Q4HP PRN #75 tab PRN Reason: Pain Level 3-6
[2018-12-02] MEDS ORDERED: POTASSIUM CHLORIDE 10 MEQ TABLET PO SCH (08:00)
[2018-12-02] MEDS ORDERED: HYDROXYCHLOROQUINE 200 MG TABLET PO SCH (09:00)
[2018-12-02] MEDS ORDERED: amLODIPine 5 MG TABLET PO SCH (09:00)
[2018-12-02] MEDS ORDERED: FUROSEMIDE 40 MG TABLET PO SCH (09:00)
[2018-12-02] MEDS ORDERED: ENOXAPARIN 80 MG/0.8 ML SYRINGE SQ SCH (09:00)
[2018-12-02] MEDS ORDERED: RALOXIFENE HCL 60 MG TABLET PO SCH (09:00)
[2018-12-02] MEDS: buPROPion 150 MG TAB.SR.12H PO SCH (09:23)
[2018-12-02] MEDS: LISINOPRIL 5 MG TABLET PO SCH (09:24)
[2018-12-02] MEDS: DOCUSATE SODIUM 100 MG CAPSULE PO SCH (09:24)
[2018-12-02] MEDS ORDERED: WARFARIN 5 MG TABLET PO SCH (10:37)
[2018-12-07] MEDS ORDERED: ERGOCALCIFEROL (VITAMIN D2) 50,000 UNIT CAPSULE PO SCH (09:00)
== END 2018-12-02 13:20 | disposition home or self-care (01) | DRG 489 ==
LOC: MEDSUR 07:06
PROVIDERS: ADMIT Orthopaedic Surgery; ATTEND Orthopaedic Surgery